=== PATIENT | male | born 1960 | race Caucasian/White ===

== ENCOUNTER 2018-06-22 19:21 | Emergency (ER) | payer SELFPAY, OTHER | END 2018-06-23 02:02 | disposition home or self-care (01) | LOC: FTE 06-23 02:02 | DX: S63.501A Unspecified sprain of right wrist, initial encounter (principal); R03.0 Elevated blood-pressure reading, without diagnosis of hypertension; F17.210 Nicotine dependence, cigarettes, uncomplicated; W01.0XXA Fall on same level from slipping, tripping and stumbling without subsequent striking against object, initial encounter; Y92.89 Other specified places as the place of occurrence of the external cause | CPT/HCPCS: 73110; 73110-RT; 99283-25 ==